=== PATIENT | male | born 1975 | race American Indian/Alaskan Native ===

== ENCOUNTER 2018-05-20 20:04 | Emergency (ER) | payer OTHER ==
[2018-05-20] MEDS ORDERED: DILAUDID IV ONE (20:16)
[2018-05-20] MEDS ORDERED: TORADOL IV ONE (20:16)
[2018-05-20] MEDS ORDERED: ZOFRAN IV ONE (20:16)
--- NOTE | 2018-05-20 20:34 | Emergency Department Report ---
HPI - General Time Seen by Provider: 05/20/18 20:09 - HPI HPI: Room 4 The patient is a 43-year-old male presenting with chief complaint of back pain. Patient states he has a history of low back pain from traumatic injury while in the [employer]. The patient states she had a fusion of L4, L5, S1 in 2004. The patient states he has had intermittent pain in the back since the surgery. The patient states 3 days ago the pain returned and has been very severe. Patient denies any recent trauma or heavy lifting. Patient denies fever 4, pain. Patient denies nausea/vomiting, bowel or bladder incontinence, hematuria or dysuria. The patient gives his pain score of 1110. Patient was transported by EMS and was administered fentanyl 100 g IV prior to arrival Location: Lumbar spine Duration: [See above] Quality: Pain Severity:02/03 Modifying factors: [see above] Context: [see above] Mode of transportation: [not driving] ED Past Medical Hx - Past Medical History Previous Medical History?: No - Surgical History Additional Surgical History: Fusion of L4/L5/S1 2004 - Family History Family history: no significant - Social History Smoking Status: Never Smoker Substance Use Type: Marijuana - Medications Home Medications: Home Medications Medication Instructions Recorded Confirmed Last Taken Type Cyclobenzaprine [Flexeril] 10 mg PO TID PRN #20 tablet 05/21/18 Unknown Rx Ibuprofen [Motrin 800 MG tab] 800 mg PO Q8HR PRN #20 tablet 05/21/18 Unknown Rx oxyCODONE /ACETAMINOPHEN [Percocet 1 - 2 tab PO Q6HR PRN #20 tablet 05/21/18 Unknown Rx 5/325] ED Review of Systems ROS: Stated complaint: BACKPAIN Other details as noted in HPI Constitutional: denies: fever Eyes: denies: eye pain ENT: denies: throat pain Respiratory: no symptoms reported Cardiovascular: denies: chest pain Endocrine: no symptoms reported Gastrointestinal: denies: abdominal pain, nausea, vomiting Genitourinary: denies: dysuria, hematuria Musculoskeletal: back pain Neurological: denies: headache, paresthesias Physical Exam - Physical Exam Physical Exam: GENERAL: The patient is well-developed well-nourished male lying on stretcher appearing to be in moderate discomfort. [] HEENT: Normocephalic. Atraumatic. Extraocular motions are intact. Patient has moist mucous membranes. NECK: Supple. Trachea midline CHEST/LUNGS: Clear to auscultation. There is no respiratory distress noted. HEART/CARDIOVASCULAR: Regular. There is no tachycardia. There is no gallop rub or murmur. ABDOMEN: Abdomen is soft, nontender. Patient has normal bowel sounds. There is no abdominal distention. SKIN: There is no rash. There is no edema. There is no diaphoresis. NEURO: The patient is awake, alert, and oriented. The patient is cooperative. The patient has normal speech MUSCULOSKELETAL: There is trace discomfort to palpation of the lumbar spine. There is limitation range of motion secondary to his lumbar pain. There is no evidence of acute injury. ED Course - Reevaluation(s) Reevaluation #1: 05/21/18 00:34 Patient states he is feeling improvement. Patient requests one more dose of pain medication and states he prefers to go home ED Medical Decision Making - Lab Data Result diagrams: 05/20/18 20:22 05/20/18 20:22 Laboratory Tests 05/20/18 05/20/18 05/20/18 20:22 20:22 23:20 WBC 7.8 RBC 5.25 H Hgb 14.7 Hct 44.7 MCV 85 MCH 28 MCHC 33 RDW 15.8 H Plt Count 210 Lymph % (Auto) 23.4 [place] % (Auto) 8.6 H Eos % (Auto) 1.0 Baso % (Auto) 0.5 Lymph # 1.8 [place] # 0.7 Eos # 0.1 Baso # 0.0 Seg Neutrophils % 66.5 Seg Neutrophils # 5.2 Sodium 143 Potassium 3.9 Chloride 104.5 Carbon Dioxide 27 Anion Gap 15 BUN 9 Creatinine 0.7 L Estimated GFR > 60 BUN/Creatinine Ratio 13 Glucose 108 H Calcium 9.1 Urine Color Yellow Urine Turbidity Clear Urine pH 7.0 Ur Specific [place] 1.012 Urine Protein <15 mg/dl Urine Glucose (UA) Neg Urine Ketones Neg Urine Blood Neg Urine Nitrite Neg Urine Bilirubin Neg Urine Urobilinogen < 2.0 Ur Leukocyte Esterase Neg Urine WBC (Auto) 2.0 Urine RBC (Auto) 2.0 Urine Mucus Few - Radiology Data Radiology results: report reviewed (CT abdomen and pelvis, CT lumbar spine), image reviewed (CT abdomen and pelvis, CT lumbar spine) Findings [facility] [address] [place] [address] Cat Scan Report Signed Patient: DUANE LANDRY MR#: [id number] : 1975 Acct:[id number] Age/Sex: 43 / M ADM Date: 05/20/18 Loc: ED Atten ding Dr: Ordering Physician: PETTY SINCLAIR MD Date of Service: 05/20/18 Procedure(s): CT abdomen pelvis wo con Accession Number(s): [id number] cc: PETTY SINCLAIR MD FINAL REPORT PROCEDURE: CT abdomen and pelvis without contrast. TECHNIQUE: Computerized axial tomography of the abdomen and pelvis was performed without intravenous contrast. This study is performed without intravascular contrast material and its sensitivity for abdominal and pelvic pathology, including neoplasms, inflammation, abscess, free fluid, thrombosis, arterial dissection and infarction, is reduced compared with a contrast enhanced study. HISTORY: Lumbar and left flank pain. COMPARISON: No prior studies are available for comparison. FINDINGS: The lung bases are clear. There are no pleural effusions. The heart size is normal. The liver, pancreas and spleen are grossly normal. The gallbladder is present. There is no biliary dilatation. The adrenal glands are not enlarged. Both kidneys appear normal in size and configuration. The abdominal aorta has a normal caliber. There is no retroperitoneal adenopathy. The unopacified gastrointestinal tract is unremarkable. A normal appendix is visible. The bladder, seminal vesicles and prostate appear normal. The regional skeleton appears intact. The patient has had a previous posterior lumbar fusion done from L4 through S1. There is a small umbilical hernia containing fat. There is a small right inguinal canal hernia containing fat. IMPRESSION: Small umbilical hernia and small right inguinal canal hernia, both containing fat. No evidence of acute disease in the abdomen or pelvis. Transcribed By: MRM Dictated By: JOE ALFORD MD Electronically Authenticated By: JOE ALFORD MD Signed Date/Time: 05/20/182258 DD/ 56 TD/TT: 05/20/182256 Findings [facility] [address] [place] [address] Cat Scan Report Signed Patient: DUANE LANDRY MR#: [id number] : 1975 Acct:[id number] Age/Sex: 43 / M ADM Date: 05/20/18 Loc: ED Attending Dr: Ordering Physician: PETTY SINCLAIR MD Date of Service: 05/20/18 Procedure(s): CT lumbar spine wo con Accession Number(s): [id number] cc: PETTY SINCLAIR MD FINAL REPORT PROCEDURE: CT lumbar spine without contrast. TECHNIQUE: Computerized axial tomography of the lumbar spine was performed from T12 to the sacrum without contrast material. HISTORY: Lumbar pain, h/o fusion 2004 COMPARISON: No prior studies are available for comparison. FINDINGS: The lumbar vertebrae have normal height and alignment. There are no fractures. There is no spondylolisthesis. The patient has had a previous posterior lumbar fusion done from L4 through S1. The other lumbar discs are well maintained. The spinal canal is widely patent. There are no definite disc protrusions, although this is much better evaluated by MRI scanning. The paravertebral soft tissues are unremarkable. IMPRESSION: Previous lumbar surgery. No significant abnormality identified. Transcribed By: MRM Dictated By: JOE ALFORD MD Electronically Authenticated By: JOE ALFORD MD Signed Date/Time: 05/20/182307 DD/ 05 TD/TT: 05/20/182305 - Differential Diagnosis acute on chronic back pain, pyelonephritis, renal colic Critical care attestation.: If time is entered above; I have spent that time in minutes in the direct care of this critically ill patient, excluding procedure time. ED Disposition Clinical Impression: Acute exacerbation of chronic low back pain Disposition: TO HOME OR SELFCARE Is pt being admited?: No Does the pt Need Aspirin: No Condition: Stable Instructions: Back Pain (ED), Chronic Back Pain (ED) Additional Instructions: Return to the emergency department immediately should you develop worsening symptoms, fever, inability to tolerate food or liquid or any other concerns. Prescriptions: Cyclobenzaprine [Flexeril] 10 mg PO TID PRN #20 tablet PRN Reason: Muscle Spasm Ibuprofen [Motrin 800 MG tab] 800 mg PO Q8HR PRN #20 tablet PRN Reason: Pain, Moderate (4-6) oxyCODONE /ACETAMINOPHEN [Percocet 5/325] 1 - 2 tab PO Q6HR PRN #20 tablet PRN Reason: Pain Referrals: KENDRICK VILLAFANA MD [Staff Physician] - [facility] (Dr. Villafana is an orthopedic surgeon. Please follow up with him or your orthopedic surgeon for further evaluation) [facility]Outside] - [facility] ([facility] as [facility] for further evaluation) Time of Disposition: 00:38
[2018-05-20 20:46] LABS: Basophils % (Auto) 0.5 % (0.0-1.8); Eosinophils # (Auto) 0.1 K/mm3 (0.0-0.4); Hematocrit 44.7 % (35.5-45.6); Hemoglobin 14.7 gm/dl (11.8-15.2); Lymphocytes # (Auto) 1.8 K/mm3 (1.2-5.4); Lymphocytes % (Auto) 23.4 % (13.4-35.0); Mean Corpuscular HGB Conc 33 % (32-34); Mean Corpuscular Volume 85 fl (84-94); Monocytes # (Auto) 0.7 K/mm3 (0.0-0.8); Monocytes % (Auto) 8.6 % (0.0-7.3); Platelet Count 210 K/mm3 (140-440); Red Blood Count 5.25 M/mm3 (3.65-5.03); Red Cell Distribution Width 15.8 % (13.2-15.2)
[2018-05-20 21:02] LABS: BUN/Creatinine Ratio 13; Blood Urea Nitrogen 9 mg/dL (9-20); Calcium 9.1 mg/dL (8.4-10.2); Hemolysis Index 27
--- NOTE | 2018-05-20 22:59 | Cat Scan Report ---
FINAL REPORT PROCEDURE: CT abdomen and pelvis without contrast. TECHNIQUE: Computerized axial tomography of the abdomen and pelvis was performed without intravenous contrast. This study is performed without intravascular contrast material and its sensitivity for ab dominal and pelvic pathology, including neoplasms, inflammation, abscess, free fluid, thrombosis, art erial dissection and infarction, is reduced compared with a contrast enhanced study. HISTORY: Lumbar and left flank pain. COMPARISON: No prior studies are available for comparison. FINDINGS: The lung bases are clear. There are no pleural effusions. The heart size is normal. The liver, pancre as and spleen are grossly normal. The gallbladder is present. There is no biliary dilatation. The adr enal glands are not enlarged. Both kidneys appear normal in size and configuration. The abdominal aor ta has a normal caliber. There is no retroperitoneal adenopathy. The unopacified gastrointestinal tra ct is unremarkable. A normal appendix is visible. The bladder, seminal vesicles and prostate appear n ormal. The regional skeleton appears intact. The patient has had a previous posterior lumbar fusion d one from L4 through S1. There is a small umbilical hernia containing fat. There is a small right ingu inal canal hernia containing fat. IMPRESSION: Small umbilical hernia and small right inguinal canal hernia, both containing fat. No evidence of acu te disease in the abdomen or pelvis.
--- NOTE | 2018-05-20 23:08 | Cat Scan Report ---
FINAL REPORT PROCEDURE: CT lumbar spine without contrast. TECHNIQUE: Computerized axial tomography of the lumbar spine was performed from T12 to the sacrum wi thout contrast material. HISTORY: Lumbar pain, h/o fusion 2004 COMPARISON: No prior studies are available for comparison. FINDINGS: The lumbar vertebrae have normal height and alignment. There are no fractures. There is no spondyloli sthesis. The patient has had a previous posterior lumbar fusion done from L4 through S1. The other anuradha mbar discs are well maintained. The spinal canal is widely patent. There are no definite disc protrus ions, although this is much better evaluated by MRI scanning. The paravertebral soft tissues are unre markable. IMPRESSION: Previous lumbar surgery. No significant abnormality identified.
[2018-05-21 00:06] LABS: Bilirubin,Urine NEG (Negative); Blood,Urine NEG (Negative); Color,Urine Yellow (Yellow); Mucus,Urine FEW /HPF; Protein,Urine <15 mg/dL mg/dL (Negative); Urobilinogen,Urine < 2.0 mg/dL (<2.0)
[2018-05-21] MEDS ORDERED: DILAUDID IV ONE (00:34)
[2018-05-21 01:24] VITALS: BP 132/59
== END 2018-05-21 01:37 | disposition home or self-care (01) ==
LOC: ED 20:04
DX: M54.5 Low back pain (principal); F12.10 Cannabis abuse, uncomplicated; G89.29 Other chronic pain
CPT/HCPCS: 36415; 72131; 74176; 80048; 81001; 85025; 96374; 96375; 96376; 99284; J1170; J1885; J2405